=== PATIENT | male | born 2000 | race Caucasian/White ===

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

== ENCOUNTER 2019-02-11 06:30 | Emergency (ER) | payer OTHER ==
[~2019-02-11] VITALS: Ht 177.8 cm; Wt 78.1 kg
[~2019-02-11 06:30] MED LIST: CEL500 PO; CLONIDINE HCL0.2 MG PO; LABETALOL HYDR300 MG PO; PENICILLIN VK500 MG PO; PREDNISONE1 MG PO; PROGRAF1 MG PO
[2019-02-11 06:36] VITALS: Ht 177.8 cm; Wt 78.1 kg
[2019-02-11 07:29] LABS: BASOPHIL % 0.4 % (0-2); PLATELET COUNT 308 x10^3mcL (130-400)
[2019-02-11 07:38] LABS: CALCIUM 9.2 mg/dL (8.5-10.1); CARBON DIOXIDE 25.3 mmol/L (21-32); CHLORIDE SERUM 105 mmol/L (98-107); CREATININE SERUM 1.4 mg/dL (0.7-1.3); GFR1 > 60 mL/min; GLUCOSE SERUM 87 mg/dL (74-106); POTASSIUM SERUM 4.5 mmol/L (3.5-5.1); SODIUM SERUM 140 mmol/L (136-145)
[2019-02-11 07:43] LABS: ALKALINE PHOSPHATASE 130 U/L (46-116); ALT/SGPT 26 U/L (16-63); AST/SGOT 15 U/L (15-37); BILIRUBIN TOTAL 0.4 mg/dL (0.20-1.00); TOTAL PROTEIN, SERUM 8.1 g/dL (6.4-8.2)
[2019-02-11 08:15] LABS: AMPHETAMINE QUAL UR NONE DETECTED (See below)
[2019-02-11 12:31] VITALS: BP 119/71
== END 2019-02-11 12:31 | disposition home or self-care (01) ==
LOC: ED 06:30
PROVIDERS: Emergency Medicine
DX: R07.89 Other chest pain (principal); I10 Essential (primary) hypertension; Z94.0 Kidney transplant status; Z88.6 Allergy status to analgesic agent; Z88.8 Allergy status to other drugs, medicaments and biological substances
CPT/HCPCS: 36415; Q0092